=== PATIENT | female | born 1995 | race Hispanic/Latino ===

== ENCOUNTER 2016-08-03 15:44 | Emergency (ER) | payer OTHER ==
[~2016-08-03] VITALS: Ht 142.2 cm; Wt 42.3 kg
[2016-08-03] MEDS ORDERED: MONT10TA2 PO (16:02)
[2016-08-03] MEDS ORDERED: NITETAB PO (16:02)
[2016-08-03] MEDS ORDERED: ADV250INH INH (16:02)
[2016-08-03] MEDS ORDERED: ACET-683 PO (16:02)
[2016-08-03 17:08] LABS: BASO % 0.3 % (0.0-1.0); EOS # 0.1 K/mm3 (0.0-0.50); EOS % 0.7 % (0.0-3.0); LARGE UNSTAINED CELL # 0.1 K/mm3 (0.0-0.4); LARGE UNSTAINED CELL % 0.6 % (0.0-4.0); LYMPH # 1.3 K/mm3 (1.5-6.5); LYMPH % 17.1 % (24.0-44.0); MEAN CORPUSCULAR HEMOGLOBIN 31.6 pg (27.0-33.0); MEAN CORPUSCULAR HGB CONC 34.3 g/dl (32.0-36.5); MEAN CORPUSCULAR VOLUME 92.1 fl (80.0-96.0); MONO # 0.3 K/mm3 (0.0-0.8); MONO % 3.8 % (0.0-5.0); NEUTROPHILS % 77.5 % (36.0-66.0); PLATELET COUNT, AUTOMATED 230 k/mm3 (150-450); RED CELL DISTRIBUTION WIDTH 12.3 % (11.5-14.5); WHITE BLOOD COUNT 7.8 K/mm3 (4.0-10.0)
[2016-08-03 17:59] VITALS: BP 110/56
--- NOTE | 2016-08-03 18:41 | REP ---
Clinical: Vaginal bleeding. Dating and viability. Technique: Transabdominal first trimester obstetrical ultrasound with color Doppler evaluation. Findings: Single live early intrauterine is appreciated. Gestational sac with yolk sac and pole identified. [place]-rump length of 5 mm corresponds to 6 weeks 2 days gestational age with estimated date of delivery 03/27/2017 . heart rate equals 112 beats per minute. No gross abnormalities are identified. Impression: Single live early intrauterine at 6 weeks 2 days gestational age. Small subchorionic hemorrhage identified measuring 10 x 6 x 13 mm. Complete anatomical assessment should be performed and 19-20 weeks. Signed by Oscar Turner MD 08/03/2016 06:32 P
== END 2016-08-03 18:16 | disposition home or self-care (01) ==
LOC: M ED 17:01
DX: O20.0 Threatened abortion (principal); O99.511 Diseases of the respiratory system complicating pregnancy, first trimester; J45.909 Unspecified asthma, uncomplicated; Z3A.01 Less than 8 weeks gestation of pregnancy; Z79.899 Other long term (current) drug therapy

== ENCOUNTER 2016-10-27 15:47 | Emergency (ER) | payer OTHER ==
[~2016-10-27] VITALS: Ht 142.2 cm; Wt 43.6 kg
[~2016-10-27 15:47] MED LIST: ACET-683 PO; ADV250INH INH; MONT10TA2 PO; NITETAB PO
[2016-10-27] MEDS ORDERED: ALBU17IN INH (16:15)
[2016-10-27] MEDS ORDERED: PRENTAB16 PO (16:15)
[2016-10-27 18:34] LABS: BASO % 0.4 % (0.0-1.0); EOS # 0.2 K/mm3 (0.0-0.50); EOS % 1.9 % (0.0-3.0); LARGE UNSTAINED CELL # 0.1 K/mm3 (0.0-0.4); LYMPH # 1.6 K/mm3 (1.5-6.5); LYMPH % 19.4 % (24.0-44.0); MEAN CORPUSCULAR HEMOGLOBIN 31.8 pg (27.0-33.0); MEAN CORPUSCULAR HGB CONC 34.1 g/dl (32.0-36.5); MEAN CORPUSCULAR VOLUME 93.1 fl (80.0-96.0); MONO # 0.5 K/mm3 (0.0-0.8); MONO % 5.8 % (0.0-5.0); NEUTROPHILS # 5.7 K/mm3 (1.8-7.7); NEUTROPHILS % 71.5 % (36.0-66.0); PLATELET COUNT, AUTOMATED 184 k/mm3 (150-450); RED CELL DISTRIBUTION WIDTH 13.4 % (11.5-14.5)
[2016-10-27 19:01] LABS: ANION GAP 6 MEQ/L (8-16); BLOOD UREA NITROGEN 9 MG/DL (7-18); CALCIUM LEVEL 8.7 MG/DL (8.5-10.1); CARBON DIOXIDE LEVEL 25 MEQ/L (21-32); CHLORIDE LEVEL 106 MEQ/L (98-107); CREATININE FOR GFR 0.53 MG/DL (0.55-1.02); GLOMERULAR FILTRATION RATE > 60.0 (>60); GLUCOSE, FASTING 71 MG/DL (70-105); POTASSIUM SERUM 3.4 MEQ/L (3.5-5.1); SODIUM LEVEL 137 MEQ/L (136-145)
[2016-10-27 19:56] VITALS: BP 97/62
--- NOTE | 2016-10-27 20:50 | REPUSA ---
Clinical statement: Pain. Findings: The appendix was not visualized. The right ovary measures 3.7 x 4.2 x 2.2 cm and is grossly unremarkable. Prominent pelvic vessels are seen in the right lower quadrant at the site of the patie nt's pain. No ascites are seen. Impression: 1. The appendix was not visualized. No inflammatory bowel changes are seen in the right lower quadran t to suggest appendicitis. 2. The right ovary is unremarkable. 3. Prominent pelvic vasculature. In the appropriate clinical setting, this could represent pelvic con gestion syndrome. Clinical correlation is suggested.
--- NOTE | 2016-10-28 00:13 | REPUSA ---
OBSTETRICAL ULTRASOUND INDICATION: OB screening. Pain. FINDINGS: A single live intrauterine gestation was identified with a heart rate of 165 bpm. The amniotic fluid index was normal. The placenta was anterior, without evidence of placenta previa. The fetus was in a vertex position. The cervix measures 2.7 cm in length and is closed. Estimated weight is 207 g. Normal movement, breathing movements and tone are noted. The cranium and ventricles are unremarkable. Posterior fossa is within normal limits. The spine was not clearly demonstrated. The facial anatomy was not visualized. All 4 extremities appear grossly unremarkable. A four-chamber heart is appreciated. The stomach, kidneys, bladder, and d iaphragm are intact. A three-vessel umbilical cord with normal cord insertion is appreciated. BIOMETRIC MEASUREMENTS BPD 4.2 cm HC 15.6 cm AC 12.4 cm FL 2.4 cm IMPRESSION: 1. Single live fetus based on today's measurements at 18 weeks 3 days, with estimated due date of 2017. 2. No abnormality detected on the survey. However, facial anatomy and the spine were not well evaluated on this study because of the position of the fetus. Follow-up is recommended as clinic ally indicated. H
== END 2016-10-27 19:56 | disposition home or self-care (01) ==
LOC: M ED 15:47
DX: O99.89 Other specified diseases and conditions complicating pregnancy, childbirth and the puerperium (principal); R10.2 Pelvic and perineal pain; Z3A.18 18 weeks gestation of pregnancy; Z79.899 Other long term (current) drug therapy